=== PATIENT | male | born 1935 | race Caucasian/White ===

== ENCOUNTER 2017-03-25 05:33 | Inpatient (IN) ==
[2017-03-14 10:53] LABS: Basophils % 0.3 % (0.0-0.8); Eosinophils # 0.3 10*3/uL (0.0-0.87); Eosinophils % 3.5 % (0.00-10.9); Hematocrit 43.8 VOL% (42.0-52.0); Hemoglobin 14.8 GM/DL (14.0-18.0); Immature Granulocytes % 0.1 %; Immature Granulocytes Absolute 0.01 #; Lymphocytes % 26.9 % (21.2-54.2); Mean Corpuscular HGB Conc 33.8 GM/DL (32-36); Mean Corpuscular Hemoglobin 30 PG (27-34); Mean Platelet Volume 10.7 FL (9.6-12.0); Monocytes # 0.6 10*3/uL (0.11-0.8); Monocytes % 8.2 % (1.7-12.7); Neutrophils # 4.6 10*3/uL (1.4-7.4); Platelet Count 232 T/CUMM (130-400); Red Blood Count 4.92 MC/CUMM (3.8-5.5); Red Cell Distribution Width 13.6 % (9.3-17.3); White Blood Count 7.5 T/CUMM (4-12)
--- NOTE | 2017-03-14 10:53 | EKG Report ---
Stationary ECG Study [facility] Test Date: 03/14/2017 10:52:27 AM Pat Name: LOLA KLEIN Department: Room: Gender: M Technician Trainee: AKUA LEON [birth year] : 1935 Requested by: Alejandro Leon Order Number: [id number] Reading MD: MYLES WALTERS Intervals [place] Rate: 73 P: 60 MS: 123 QRS: 268 QRSD: 162 T: 28 QT: 397 QTc: 423 Interpretive Statements SINUS RHYTHM WITH OCCASIONAL VENTRICULAR PREMATURE COMPLEXES MARKED RIGHT AXIS DEVIATION RIGHT BUNDLE BRANCH BLOCK Electronically Signed On 03-14-17 17:10:44 CDT by MYLES WALTERS [email or web address]
[2017-03-14 10:54] LABS: Apearance,Urine CLEAR (Clear); Bilirubin,Urine Negative (Negative); Blood, Urine Small mg/dL (Negative); Glucose,Urine (UA) Negative (Negative); Ketones,Urine Negative (Negative); Mucus,Urine Occasional /LPF (Occasional); Nitrite,Urine Negative (Negative); Protein,Urine Negative; RBC,Urine 1 /HPF (0-4); Squamous Epithelial Cell,Urine Occasional /HPF (0-10); Urine Color Yellow (Yellow); Urine Specific Gravity 1.015 (1.001-1.035); Urine Urobilinogen < 2.0 EU/DL (0.2-1.0); WBC,Urine <1 /HPF (0-6)
[2017-03-14 11:31] LABS: Calcium 8.9 MG/DL (8.5-10.1); Osmolality,Calculated 294.8 MOS/KG (273-304); Potassium 4.6 MMOL/L (3.5-5.1)
[2017-03-25] MEDS ORDERED: cefTRIAXone 1,000 MG in SODIUM CHLORIDE 0.9% 100 ML IV ONE (06:00)
[2017-03-25] MEDS ORDERED: ALVIMOPAN 12 MG CAPSULE PO ONE (06:00)
[2017-03-25] MEDS: LACTATED RINGERS 1,000 ML IV SCH (06:30)
[2017-03-25] MEDS ORDERED: ALVIMOPAN 12 MG CAPSULE ONE (06:48)
[2017-03-25] MEDS ORDERED: cefTRIAXone 1,000 MG VIAL ONE (06:49)
[2017-03-25] MEDS ORDERED: SODIUM CHLORIDE 0.9% 100 ML IV ONE (06:49)
[2017-03-25] MEDS ORDERED: GLYCOPYRROLATE 0.4 MG/2 ML VIAL ONE (07:05)
[2017-03-25] MEDS ORDERED: LIDOCAINE 2% 5 ML VIAL ONE (07:05)
[2017-03-25] MEDS ORDERED: PROPOFOL 200 MG/20 ML VIAL IV ONE (07:05)
[2017-03-25] MEDS ORDERED: ONDANSETRON 4 MG/2 ML VIAL ONE ×2 (07:05→09:46)
[2017-03-25] MEDS ORDERED: NEOSTIGMINE 10 MG/10 ML VIAL ONE (07:05)
[2017-03-25] MEDS ORDERED: ROCURONIUM 100 MG/10 ML VIAL IV ONE (07:05)
[2017-03-25 08:20] LABS: Apearance,Urine CLEAR (Clear); Bilirubin,Urine Negative (Negative); Blood, Urine Moderate mg/dL (Negative); Glucose,Urine (UA) Negative (Negative); Hyaline Casts,Urine 2 /LPF (0-3); Ketones,Urine Negative (Negative); Mucus,Urine Occasional /LPF (Occasional); Nitrite,Urine Negative (Negative); Protein,Urine Negative; RBC,Urine 7 /HPF (0-4); Urine Color Yellow (Yellow); Urine Specific Gravity 1.016 (1.001-1.035); Urine Urobilinogen < 2.0 EU/DL (0.2-1.0); WBC,Urine 1 /HPF (0-6)
[2017-03-25] MEDS ORDERED: diphenhydrAMINE 50 MG/1 ML VIAL IV PRN (09:23)
[2017-03-25] MEDS ORDERED: ONDANSETRON 4 MG/2 ML VIAL IV PRN ×2 (09:23→09:46)
--- NOTE | 2017-03-25 09:35 | Operative Note ---
Date of procedure: 03/25/17 Pre-op diagnosis: Renal cell carcinoma right kidney Post-op diagnosis: same Procedure: 81-year-old white male who has a large 8 cm tumor involving the upper midportion of the kidney is admitted for a hand-assisted laparoscopic right radical nephrectomy. The proposed procedure was explained at length and in detail. Risks, complications, outcomes, sequelae, prognosis and alternative therapy was discussed. Patient understood this and agreed to proceed. Patient is brought to the operative suite placed table supine position. He is then given a general endotracheal anesthetic was tolerated well and then placed in the modified left lateral decubitus position for a hand-assisted right renal surgery. Kidney rest was raised and the patient is flexed slightly. Patient is rotated outwardly slightly. He secured to the table with a beanbag. An strap. He is then prepared and draped in usual sterile manner. A formal timeout was obtained. Looking at the CT, I placed the GelPort in appropriate position. This is marked. Incision is created in the skin. This is carried down through the fascial layers. Muscles were split and the posterior peritoneum posterior fascia was incised. The abdomen is entered atraumatically. The incision is carried throughout the extent of it. She will ports placed in the wound. It is capped. Empty trocar is placed in this and pneumoperitoneum was obtained. Camera was placed in this and there is no significant adhesions. There is some mesh down in the left lower quadrant from a hernia repair but there is no significant adhesions. Left hand splint in the gel port and a 12 mm ports put up in the right upper quadrant just lateral to the midline. Another one is placed in the right lower quadrant.. The monopolar scissors scissors were then used in the lower port to incise the white line of Toldt. This is carried to the extent above the liver. The liver ligament is incised. The peritoneum was then swept off the kidney and Gerota's fascia is entered and reflected anteriorly and medially. Attention was directed to the lower pole where the fatty attachments are divided ureter is identified double clipped and then divided with the scissors. Attention was directed medial to the lower pole. Small vessels were hemoclipped. Larger vessels were then divided with the SANJAY stapler. Main vessels were identified and then divided with the vascular stapler. Attention was continued up over the upper pole of the attachments were hemoclipped and divided. The kidney was then . The adrenal was then removed. Adrenal vein was doubly clipped and divided smaller veins were clipped and divided or cauterized. The drain was sent as separate specimen. The renal fossa was irrigated there is no significant bleeding. Piece of Gelfoam was placed in the most superior portion of this. The bowel was laying flat. The ports were removed. The ports were closed with a [id number] suture pre-peritoneally on all with a 0 PDS. The break was removed from the table in the kidney rest was laying flat. The GelPort was closed with a running #1 PDS. All wounds are irrigated and drained and hemostasis checked with cautery and the skin was closed with skin clips on all wounds. Sterile dressings were placed on the wounds. Patient was then awakened general anesthesia having tolerated this procedure extremely well was sent to the recovery room in stable condition. All sponge, needle enhancement counts correct 2. Anesthesia: GETA Surgeon / Physician: Alejandro Leon Estimated blood loss: other (100 cc) Specimens: other (Right kidney with adrenal) Condition: stable Disposition: PACU Results - Labs CBC & BMP: 03/14/17 10:43 03/14/17 10:43 Discharge Plan - Discharge Medications No Action Aspirin [Ecotrin] 81 mg PO DAILY Lisinopril 40 mg PO DAILY hydroCHLOROthiazide [Hydrochlorothiazide] 12.5 mg PO DAILY Pantoprazole Tab [Protonix Tab] 40 mg PO DAILY Metoprolol Tartrate 25 mg PO BID Atorvastatin [Lipitor] 10 mg PO DAILY - Follow Up or Referral - Forms/Instructions
[2017-03-25] MEDS ORDERED: SEVOFLURANE 1 UNIT/15 MINUTE INH ONE (09:43)
[2017-03-25] MEDS ORDERED: fentaNYL 100 MCG/2 ML VIAL ONE (09:44)
[2017-03-25] MEDS ORDERED: MIDAZOLAM 2 MG/2 ML VIAL ONE (09:44)
[2017-03-25] MEDS ORDERED: ePHEDrine 50 MG/ML AMP ONE (09:44)
[2017-03-25] MEDS ORDERED: LACTATED RINGERS 1,000 ML IV ONE (09:44)
[2017-03-25] MEDS ORDERED: HYDROmorphone 2 MG/1 ML VIAL ONE ×2 (09:44→09:46)
[2017-03-25] MEDS: HYDROmorphone 2 MG/1 ML VIAL IV PRN ×3 (09:49→09:59)
[2017-03-25] MEDS ORDERED: HYDROmorphone PCA 30 MG/30 ML SYRINGE IV ONE (09:59)
[2017-03-25] MEDS: HYDROmorphone PCA 30 MG/30 ML SYRINGE IV SCH (10:01)
[2017-03-25] MEDS: SODIUM CHLORIDE 0.45% 1,000 ML IV SCH ×2 (11:36→20:32)
--- NOTE | 2017-03-25 15:20 | Anesthesia Post-Op ---
Anesthesia Post OP - Post Ansesthetic Evaluation Patient seen in post op: Yes Resp: within normal limits CV: within normal limits Mental: within normal limits Temp: within normal limits [id number]-[id number]-[id number]: within normal limits Nausea and Vomiting: within normal limits Pain: within normal limits
[2017-03-25] MEDS ORDERED: cloNIDine 0.1 MG TABLET PO ONE (17:34)
--- NOTE | 2017-03-25 17:58 | Urology Progress Note ---
Urology - PN: Subj Interval history: Postoperative check. Patient is awake and alert. He is sitting up in the chair. He is having some right upper quadrant pain as expected. His wounds reveal dry and intact dressings. Urine is clear. Vital signs are stable. Patient is stable. Exam - Constitutional Vitals: Period Temp Pulse Resp BP Sys/Andrade Pulse Ox Last 24 Hr 97.0 F-97.8 F 59-86 16-20 161-198/75-94 95-100 Results - Labs CBC & BMP: 03/14/17 10:43 03/14/17 10:43
--- NOTE | 2017-03-25 20:26 | Pulmonology Consult Note ---
Assessment and Plan (1) Right renal mass Status: Acute Assessment and plan: He has had right nephrectomy earlier today. Having some pain but tolerating fairly well. Will need to watch his renal function closely. Current Visit: No (2) HTN (hypertension) Status: Chronic Assessment and plan: Blood pressures been running around 170-180 systolic. We have given him a clonidine. Resume his home medications per Current Visit: No History of Present Illness Chief complaint: Postop right nephrectomy History of present illness: Mr. Parks is a 81 year old male who had a right nephrectomy this morning. He had a recent pneumonia and was evaluated by Dr. Leiva about a month ago for clearance for surgery. When he had the pneumonia he was found to have a right kidney mass which is led to the right nephrectomy. Follow-up in the office last month showed the pneumonia cleared. Home Medications Medication Instructions Recorded Confirmed Type Aspirin [Ecotrin] 81 mg PO DAILY 03/11/16 03/25/17 History Atorvastatin [Lipitor] 10 mg PO DAILY 03/11/16 03/25/17 History Lisinopril 40 mg PO DAILY 03/11/16 03/25/17 History Metoprolol Tartrate 25 mg PO BID 03/11/16 03/25/17 History Pantoprazole Tab [Protonix Tab] 40 mg PO DAILY 03/11/16 03/25/17 History hydroCHLOROthiazide 12.5 mg PO DAILY 03/11/16 03/25/17 History [Hydrochlorothiazide] Allergies Allergy/AdvReac Type Severity Reaction Status Date / Time No Known Allergies Allergy Verified 12/07/16 05:15 12 point system: reviewed and no additional remarkable complaints except as stated - EENT Ears: Present: decreased hearing - Gastrointestinal Gastrointestinal: Present: abdominal pain - Musculoskeletal Musculoskeletal: Present: myalgias Exam (Pulmonay) H&P - Constitutional Vitals: Period Temp Pulse Resp BP Sys/Andrade Pulse Ox Last 24 Hr 97.0 F-97.8 F 59-108 16-20 161-198/75-96 93-100 Exam: Blood pressure 171/96. Vital signs otherwise normal. Pupils react to light. Throat is clear. Neck supple no bruits. Chest reveals clear lungs equal breath sounds. Heart normal rate rhythm no murmurs no rubs no gallops. Abdomen soft nontender no masses. Extremities no clubbing cyanosis or edema. Calves nontender. Bandage over his right flank. Medical,Surgical,& Family Hx - Medical History Cardio: History of: CAD, Hypertension Neurology: No history of: Seizures Endocrine: History of: Dyslipidemia Respiratory: History of: Pneumonia, Respiratory Problems (PRODUCTIVE COUGH) Renal: Comment Only: Renal Problems (MASS R KIDNEY) Gastrointestinal: History of: GERD Comment Only: GI Problems (SLIGHT ABD PAIN LEFT LOWER GROIN) - Surgical History Cardiac Surgeries: Sugical HX of: Cardiac Surgery (bypass [address]ALTERS ) Thoracic Surgeries: Surgical HX of;: Kidney (Renal Surgery) Abdominal Surgeries: Surgical HX of: Hernia Repair - Family History Family History: Reports;: Family Heart Disease (BROTHER) - Social History Smoking Status: Never smoker Frequency of Alcohol Use: None Type of Drug Use: None Results - Labs CBC & BMP: 03/14/17 10:43 03/14/17 10:43 Lab Results: I have reviewed the past 24 hour labs
[2017-03-25] MEDS: METOPROLOL TARTRATE 25 MG TABLET PO SCH (20:31)
[2017-03-25] MEDS: ALVIMOPAN 12 MG CAPSULE PO SCH (20:31)
[2017-03-26 04:50] LABS: Basophils % 0.1 % (0.0-0.8); Eosinophils % 0.2 % (0.00-10.9); Hematocrit 43.6 VOL% (42.0-52.0); Hemoglobin 14.1 GM/DL (14.0-18.0); Immature Granulocytes % 0.2 %; Immature Granulocytes Absolute 0.03 #; Lymphocytes # 1.4 10*3/uL (1.4-4.0); Lymphocytes % 11.6 % (21.2-54.2); Mean Corpuscular HGB Conc 32.3 GM/DL (32-36); Mean Corpuscular Hemoglobin 29 PG (27-34); Mean Corpuscular Volume 90.3 FL (87-102); Mean Platelet Volume 10.7 FL (9.6-12.0); Monocytes # 1.6 10*3/uL (0.11-0.8); Monocytes % 12.9 % (1.7-12.7); Neutrophils # 9.1 10*3/uL (1.4-7.4); Platelet Count 180 T/CUMM (130-400); Red Blood Count 4.83 MC/CUMM (3.8-5.5); Red Cell Distribution Width 13.7 % (9.3-17.3); White Blood Count 12.1 T/CUMM (4-12)
[2017-03-26 05:21] LABS: Band Neutrophils 2 % (0-10); Lymphocytes 13 % (20-55); Platelet Estimate Adequate; Segmented Neutrophils 77 % (50-85); Total Cells Counted 100
[2017-03-26 05:30] LABS: Calcium 8.1 MG/DL (8.5-10.1)
[2017-03-26 05:31] LABS: Osmolality,Calculated 281.8 MOS/KG (273-304); Potassium 5.3 MMOL/L (3.5-5.1)
[2017-03-26] MEDS: SODIUM CHLORIDE 0.45% 1,000 ML IV SCH ×3 (05:50→16:21)
[2017-03-26] MEDS: LACTATED RINGERS 1,000 ML IV SCH (07:59)
[2017-03-26] MEDS ORDERED: amLODIPine 5 MG TABLET PO SCH (09:00)
[2017-03-26] MEDS ORDERED: LISINOPRIL 20 MG TABLET PO SCH ×2 (09:00→09:29)
[2017-03-26] MEDS ORDERED: hydroCHLOROthiazide 12.5 MG CAPSULE PO SCH (09:00)
[2017-03-26] MEDS: ALVIMOPAN 12 MG CAPSULE PO SCH ×2 (09:55→20:22)
[2017-03-26] MEDS: METOPROLOL TARTRATE 25 MG TABLET PO SCH ×2 (09:56→20:22)
[2017-03-26] MEDS: PANTOPRAZOLE 40 MG TABLET PO SCH (09:56)
[2017-03-26] MEDS: ATORVASTATIN 10 MG TABLET PO SCH (09:56)
[2017-03-26] MEDS: HYDROmorphone PCA 30 MG/30 ML SYRINGE IV SCH (09:59)
[2017-03-26] MEDS: amLODIPine 10 MG TABLET PO SCH (09:59)
--- NOTE | 2017-03-26 10:05 | Pulmonology Progress Note ---
Pulmonary - PN: Subj Interval history: This 81-year-old man had a right nephrectomy yesterday. He has a history of hypertension and has been on lisinopril. His creatinine has risen slightly to 2.1 postop. We will stop his lisinopril and replace it with clonidine and amlodipine at increased dose. Patient is having some right flank pain. He is to get up and walk today and was encouraged to do so. Exam (Progress Note) - Constitutional Vitals: Period Temp Pulse Resp BP Sys/Andrade Pulse Ox Last 24 Hr 97.0 F-98.9 F 59-118 16-20 148-187/75-120 89-98 Exam: Is alert and oriented. Systolic blood pressures around 160. Pupils react to light. Throat is clear. Neck supple no bruits. Chest sounds clear. Heart normal rate and rhythm no murmurs. Abdomen soft nontender bowel sounds present. Extremities no clubbing cyanosis or edema. Calves nontender. Results - Labs CBC & BMP: 03/26/17 04:43 03/26/17 04:43 Lab Results: I have reviewed the past 24 hour labs Assessment and Plan (1) Right renal mass Status: Acute Assessment and plan: He has had right nephrectomy earlier today. Having some pain but tolerating fairly well. Will need to watch his renal function closely. status post right nephrectomy. Pathology pending. Current Visit: No (2) HTN (hypertension) Status: Chronic Assessment and plan: Blood pressures been running around 170-180 systolic. We have given him a clonidine. Resume his home medications per 03/26/2017 blood pressure is a little high. With his creatinine rise, we will stop lisinopril and put on regular dosing of clonidine and amlodipine. Dr. Marshall follows him for his hypertension. If we have difficulty controlling this we might want to ask him to check. Current Visit: No
--- NOTE | 2017-03-26 11:23 | Pathology Report from [facility] ---
[facility] – [place] ACCESSION # : [id number] PATIENT NAME : Sr. Parks Billy H. ORDERING DR : MARY AGUILAR MD CLINICAL HX: Right kidney cancer POST-OP DX: Same SPECIMEN INFO: Right kidney with adrenal gland GROSS DESCRIPTION: Received in formalin labeled LOLA PARKS is a kidney measuring 11.0 x 7.0 cm. The ureter measures 6.5 cm. Bisecting the kidney reveals a yellow orange circumscribed tumor mass measuring 6.5 x 5.5 cm which is situated within the upper pole and grossly extends to but not through the renal capsule. Also seen are multiple fluid filled cysts measuring up to 4.5 cm. The adrenal gland is received and measures 4.5 x 1.8 cm. Sections submitted A-Ureteral and vascular margins, B-D-Tumor renal pelvis, E&F-Tumor renal capsule , G-Pointing Machine Operator cyst, H-Pointing Machine Operator adrenal gland. DIAGNOSIS FOR LOLA PARKS SR.: RIGHT RADICAL NEPHRECTOMY: TYPE: Renal cell carcinoma, clear cell type. SIZE: 6.5 x 5.5 cm. DONNY GRADE 2. MARGINS: Uninvolved. SITE: Upper pole. FOCALITY: Unifocal. ANATOMIC EXTENT: Tumor limited to kidney, with superficial invasion of renal pelvis. SARCOMATOID FEATURES: Not identified. TUMOR NECROSIS: Not identified. ADRENAL GLAND: Negative for tumor. LYMPH NODES: Number examined: 0. FINDINGS IN KIDNEY: Adjacent simple cysts. AJCC PATHOLOGIC STAGE I ([id number]). COLLECTED DATE: 03/25/2017 [facility] REPORT DATE: 03/26/2017 ELECTRONICALLY SIGNED BY: Alee Krishnamurthy M.D. 03/26/2017 - 9:11:44 [facility] HOSPITALZachary
--- NOTE | 2017-03-26 12:30 | Urology Progress Note ---
Urology - PN: Subj Interval history: Postoperative day 1. Patient complains of right upper quadrant pain as expected. His dressings are dry and intact. His abdomen is soft. He is not passing flatus yet. His blood work reveals a stable H&H. His creatinine did go up to 2.1. His potassium this morning is 5.3. Dr. Palomino to change some of his meds. I will repeat his potassium in the morning. He needs to ambulate. His pathology report has returned. This is a a renal cell carcinoma, clear cell type. Grade 2 lesion. Margins negative. The adrenal glands negative. Excellent report. I will stop his SHIP MATE and place him on Percocet with Demerol IM if needed and he needs to ambulate. We will advance his diet. Exam - Constitutional Vitals: Period Temp Pulse Resp BP Sys/Andrade Pulse Ox Last 24 Hr 97.4 F-98.9 F 85-118 16-20 144-171/78-120 89-98 Results - Labs CBC & BMP: 03/26/17 04:43 03/26/17 04:43
[2017-03-26] MEDS ORDERED: MEPERIDINE 50 MG/1 ML VIAL IM PRN (12:31)
[2017-03-26] MEDS: oxyCODONE/ACETAMINOPHEN 5-325 MG TABLET PO PRN ×2 (15:15→20:22)
[2017-03-26] MEDS: cloNIDine 0.1 MG TABLET PO SCH (20:22)
--- NOTE | 2017-03-27 07:40 | Urology Progress Note ---
Urology - PN: Subj Interval history: Patient is doing well. He still has not had a bowel movement. He is having minimal pain. His pathology report revealed confined cancer. We will offer him Dulcolax suppository and have him continue to ambulate. Hopefully home tomorrow. His potassium was 4.3 on repeat. Exam - Constitutional Vitals: Period Temp Pulse Resp BP Sys/Andrade Pulse Ox Last 24 Hr 97.8 F-98.9 F 78-118 16-20 128-162/68-120 91-93 Results - Labs CBC & BMP: 03/26/17 04:43 03/27/17 03:23
[2017-03-27] MEDS: amLODIPine 10 MG TABLET PO SCH (09:17)
[2017-03-27] MEDS: ATORVASTATIN 10 MG TABLET PO SCH (09:17)
[2017-03-27] MEDS: PANTOPRAZOLE 40 MG TABLET PO SCH (09:17)
[2017-03-27] MEDS: ALVIMOPAN 12 MG CAPSULE PO SCH ×2 (09:17→20:16)
[2017-03-27] MEDS: METOPROLOL TARTRATE 25 MG TABLET PO SCH ×2 (09:17→20:16)
[2017-03-27] MEDS: cloNIDine 0.1 MG TABLET PO SCH ×2 (09:17→20:16)
[2017-03-27] MEDS: BISACODYL 10 MG SUPP RECTAL SCH (09:17)
--- NOTE | 2017-03-27 10:17 | Pulmonology Progress Note ---
Pulmonary - PN: Subj Interval history: This 81-year-old man had a right nephrectomy yesterday. He has a history of hypertension and has been on lisinopril. His creatinine has risen slightly to 2.1 postop. We will stop his lisinopril and replace it with clonidine and amlodipine at increased dose. Patient is having some right flank pain. He is to get up and walk today and was encouraged to do so. 03/27/2017 patient's blood pressure is well controlled. He still has some ileus and is not taking in much by mouth. Considering that his creatinine has risen slightly I will resume his IV fluids. Exam (Progress Note) - Constitutional Vitals: Period Temp Pulse Resp BP Sys/Andrade Pulse Ox Last 24 Hr 97.8 F-98.9 F 78-86 16-20 128-147/68-79 91-93 Exam: Is alert and oriented. Systolic blood pressures around 160. Pupils react to light. Throat is clear. Neck supple no bruits. Chest sounds clear. Heart normal rate and rhythm no murmurs. Abdomen soft nontender bowel sounds present. Extremities no clubbing cyanosis or edema. Calves nontender. Little change from yesterday. Results - Labs CBC & BMP: 03/26/17 04:43 03/27/17 03:23 Lab Results: I have reviewed the past 24 hour labs Assessment and Plan (1) Right renal mass Status: Acute Assessment and plan: He has had right nephrectomy earlier today. Having some pain but tolerating fairly well. Will need to watch his renal function closely. status post right nephrectomy. Pathology pending. 03/27/2017 status post nephrectomy. Pathology showed renal cell carcinoma. Current Visit: No (2) HTN (hypertension) Status: Chronic Assessment and plan: Blood pressures been running around 170-180 systolic. We have given him a clonidine. Resume his home medications per 03/26/2017 blood pressure is a little high. With his creatinine rise, we will stop lisinopril and put on regular dosing of clonidine and amlodipine. Dr. Marshall follows him for his hypertension. If we have difficulty controlling this we might want to ask him to check. 03/27/2017 blood pressure now well controlled Current Visit: No (3) Renal insufficiency Status: Acute Assessment and plan: Creatinine was 2.1 postop. Continuing IV fluids another day. Recheck chemistries tomorrow. Current Visit: Yes
[2017-03-27] MEDS ORDERED: DEXTROSE 5% NACL 0.45% 1,000 ML IV SCH (10:30)
[2017-03-27] MEDS: MAGNESIUM HYDROXIDE SUSP 30 ML UDCUP PO PRN ×2 (17:24→21:04)
[2017-03-28 06:07] LABS: Calcium 8.3 MG/DL (8.5-10.1); Magnesium 2.4 MG/DL (1.8-2.4); Osmolality,Calculated 279.8 MOS/KG (273-304); Potassium 4.6 MMOL/L (3.5-5.1)
[2017-03-28 07:39] VITALS: BP 144/70
[2017-03-28] MEDS: ATORVASTATIN 10 MG TABLET PO SCH (09:22)
[2017-03-28] MEDS: PANTOPRAZOLE 40 MG TABLET PO SCH (09:22)
[2017-03-28] MEDS: METOPROLOL TARTRATE 25 MG TABLET PO SCH (09:22)
[2017-03-28] MEDS: ALVIMOPAN 12 MG CAPSULE PO SCH (09:22)
[2017-03-28] MEDS: amLODIPine 10 MG TABLET PO SCH (09:22)
[2017-03-28] MEDS: cloNIDine 0.1 MG TABLET PO SCH (09:23)
[2017-03-28] MEDS: BISACODYL 10 MG SUPP RECTAL SCH (09:23)
--- NOTE | 2017-03-28 09:29 | Discharge Summary ---
Hospital Course - Hospital Course Hospital Course: 81-year-old gentleman had a renal cell carcinoma the right kidney. He was admitted and underwent a laparoscopic right nephrectomy. Postoperatively is done well. Dr. Leiva was consulted but he is out of town a Dr. Palomino saw the patient in his absence. He has done well his postoperative course has been uneventful. His pathology report reveals a confined cancer. He has reached maximal hospital benefit. He is tolerating regular diet and having normal bowel movements and we will discharge and follow-up in 2 weeks. - Time spent with patient Time with patient DS: Greater than 30 minutes Diagnosis - Discharge Diagnosis (1) Renal cell carcinoma of right kidney Status: Acute Specialty Discharge - Follow Up or Referrals Follow up with: Alejandro Leon MD [Physician] - 04/15/17 3:00 pm Discharge Plan - Discharge Data Disposition: Disch To Home/Self Care Condition at Discharge: Stable Discharge Diet: heart healthy Activity: no lifting, other (Walking on flat ground encouraged, no driving or riding) Hygiene: no restrictions Weight Bearing at Discharge: full weight bearing Driving: not until seen by doctor Contact your physician if you experience:: fever over 101, Redness or swelling, Bleeding, pain uncontrolled by pain medications - Discharge Medications No Action Aspirin [Ecotrin] 81 mg PO DAILY Lisinopril 40 mg PO DAILY hydroCHLOROthiazide [Hydrochlorothiazide] 12.5 mg PO DAILY Pantoprazole Tab [Protonix Tab] 40 mg PO DAILY Metoprolol Tartrate 25 mg PO BID Atorvastatin [Lipitor] 10 mg PO DAILY - Follow Up or Referral Follow Up: Alejandro Leon MD [Physician] - 04/15/17 3:00 pm - Forms/Instructions Exam - Constitutional Vitals: Period Temp Pulse Resp BP Sys/Andrade Pulse Ox Last 24 Hr 97.8 F-99.6 F 68-83 18-20 140-163/70-88 91-96 Discharge Results Labs on day of discharge: Labs from last 24 hours 03/28/17 05:19 Sodium 137 Potassium 4.6 Chloride 101 Carbon Dioxide 28 Anion Gap 12.6 BUN 28 H Creatinine 2.00 H GFR Calculation 38 BUN/Creatinine Ratio 14.00 Glucose 122 H Calculated Osmolality 279.8 Calcium 8.3 L Magnesium 2.4 DS: Provider Date of admission: 03/25/17 09:23 Primary care physician: Jorge L Aguilar Attending physician on admission: Alejandro Leon MD Consults: 03/25/17 09:28 Consult to Physician [CONS] Routine Comment: Known to you Consulting Provider: Rodrigo Palomino Consult to Specialist Group: Urology When should Consulting Provider be notified: Now Person Notified: dario Date Notified: 03/25/17 Time Notified: 11:21 Discharging clinician: Alejandro Leon MD
== END 2017-03-28 11:43 | disposition home or self-care (01) | DRG 657 ==
LOC: N.OR 05:33 → N.SDSINP 05:35 → N.5E 09:23
PROVIDERS: ADMIT Urology; ATTEND Urology